=== PATIENT | male | born 1945 | race Caucasian/White ===

== ENCOUNTER 2023-07-13 14:27 | Outpatient (REF) | payer OTHER, SELFPAY ==
--- NOTE | ~2023-07-13 | FL_ITS ---
EXAMINATION: XR BARIUM SWALLOW CLINICAL INFORMATION: Oral and pharyngeal dysphagia. COMPARISON: None available. TECHNIQUE: Modified barium swallow with speech pathologist. FINDINGS: Patient swallowed multiple consistencies from thin liquid to barium coated cookie. There is noted to be laryngeal penetration and tracheal aspiration without a cough reflex being elicited with thin contrast. There was transient laryngeal penetration with nectar thick on a single swallow. FLUOROSCOPY TIME: 5.0 minutes DOSE AREA PRODUCT: 17.005 Gy-cm2 (cantrell-centimeter squared) FL/FL barium swallow modified IMPRESSION: Aspiration without cough reflex with thin liquid. Please refer to speech pathology report for details.
--- NOTE | 2023-07-14 16:48 | MHC.SL.IMP ---
Date of Plan of Treatment: 07/13/23 Onset of Symptoms/Illness: 07/13/15 Date Treatment Started: 07/13/23 Admitting Diagnosis: Dysphagia Progressive Supranuclear Palsy (PSP) Primary Speech & Language Diagnosis: R13.12 Oropharyngeal Phase Dysphagia Reason for Today's Visit: 34398 Modified Barium Swallow Study Pre-evaluation Dietary Consistencies: Food is cut up Pre-evaluation Liquid Consistency: Liquids are thickened- consistency UNK Medical History: Modified Barium Swallow Study Fluoroscopic Evaluation of Swallowing Function CPT Code 72893 Evaluation Year: 2022 Reason for Study: Hx dysphagia & Progressive Supranuclear Palsy Referring Physician: Thong Okeefe MD Evaluating Clinician: Gila Jane MA, CCC-POWERHOUSE LABORER Study Number: 1 Patient Name: Yoni Way Status: Outpatient, Wheelchair Age: 78 Gender: Male Medical History Dysphagia Progressive Supranuclear Palsy (PSP) Current (pre-evaluation) Intake/Diet: Route: PO Diet Grade: ?Food is cut up? (liquids thickened) Pre-Study Functional Oral Intake Scale (FOIS): 5- Total oral intake of multiple consistencies requiring special preparation Pain: None reported at time of study SUBJECTIVE: Pt is a 78 year old male referred for a MBSS by Thong Okeefe MD to assess the extent of oropharyngeal dysphagia and to determine safest, least restrictive diet. Pt has history of dysphagia and has demonstrated overt s/s of aspiration with liquids during clinical swallow evaluations when seen by rib stiffener and heel dipper in the past. Pt has been diagnosed with underlying Progressive Supranuclear Palsy (PSP). He was accompanied to this exam by his , Mrs. Mariely Way, who reports she is pt?s primary caregiver and assisted in providing background information. Pt stated that he has difficulty swallowing, with his specifying that he seems to have more difficulty with liquids. Pt reportedly coughs and at times spits out liquids. Pt denied experiencing odynophagia and globus sensation. Per Mrs. Way, pt has had an MBSS in the past. Mr. and Mrs. Way were unable to recall specific details, but Mrs. Way reports pt does have history of known aspiration. Mrs. Way reports she cuts up food into small pieces, uses thickener with drinks at home, and assists in feeding pt. Oral Motor Exam Mouth Occlusion: Normal Oral-Facial Teeth Characteristics: Intact/Normal Oral-Facial Smile (Lips) Description: Normal Tongue Size: Normal Tongue Excursion Description: Normal Tongue Range of Movement Description: Normal Tongue Speed of Movement Description: Reduced Tongue Strength of Movement (against opposing pressure): Reduced Tongue Movement Characteristics: Fasciculations Tongue Movement Miscellaneous Observation: Pt w/ weak volitional cough. Is patient able to manage secretions?: Yes Food and Liquid Trials: Oral Impairment: Lip Closure: Did not test Oral Impairment: Tongue Control During Bolus Hold: 2=Posterior escape of less than half of bolus Oral Impairment: Bolus Preparation/Mastication: 1=Slow prolonged chewing/mashing with complete re-collection Oral Impairment: Bolus Transport/Lingual Motion: 3=Repetitive/disorganized tongue motion Oral Impairment: Oral Residue: 1=Trace residue lining oral structures Oral Impairment:Initiation of Pharyngeal Swallow: 3=Bolus head in pyriforms Pharyngeal Impairment: Soft Palate Elevation: 0=No bolus between soft palate (SP)/pharyngeal wall (PW) Pharyngeal Impairment: Laryngeal Elevation: 1=Partial thyroid cartilage/arytenoids to epiglottic petiole movement Pharyngeal Impairment: Anterior Hyoid Excursion: 1=Partial anterior movement Pharyngeal Impairment: Epiglottic Movement: 1=Partial inversion Pharyngeal Impairment: Laryngeal Vestibular Closure:: 1=Incomplete: narrow column air/contrast in laryngeal vestibule Pharyngeal Impairment: Pharyngeal Stripping Wave: 1=Present: diminished Pharyngeal Impairment: Pharyngeal Contraction: Did not test Pharyngeal Impairment: Pharyngoesophageal Segment Openin=Complete distension and complete duration: no obstruction of flow Pharyngeal Impairment: Tongue Base (TB) Retraction: 3=Wide column of contrast/air between TB and posterior PW Pharyngeal Impairment: Pharyngeal Residue: 1=Trace residue within or on pharyngeal structures Pharyngeal Impairment: Esophageal Clearance Upright Position: Did not test Impressions and Recommendations Clinical Observations: OBJECTIVE: Time-out: performed at 15:30 Evaluation Start: 15:00; Stop: 15:11 Patient Positioning: Seated 70-90 degrees Viewing Planes: LATERAL ONLY Contrast: MBSImP? Standardized Protocol using commercially prepared, standardized Barium viscosities, including: Varibar? THIN LIQUID (40% w/v, <15 cps) , Varibar? NECTAR (40% w/v, <150-450 cps) , Varibar? THIN HONEY (40% w/v, <800-1800 cps) , 1/2 Shortbread Cookie (1 x1 x.25 ) MBSImP ID: [id number] [facility] Results: Lip closure for intraoral bolus containment could not be assessed due to logistical reasons not related to physiologic impairment. Tongue control during bolus hold resulted in posterior escape of less than half of the bolus. Bolus preparation and mastication resulted in slow, prolonged chewing/mashing but with complete re-collection. Bolus transport/lingual motion was with repetitive/disorganized motion of the tongue. Oral residue was a trace, lining oral structures. Initiation of the pharyngeal swallow occurred when the bolus head was in the pyriform sinuses. Soft palate elevation resulted in no bolus between the soft palate and the pharyngeal wall. Laryngeal elevation was decreased, with partial superior movement of the thyroid cartilage/partial approximation of the arytenoids to the epiglottic petiole. Anterior hyoid excursion demonstrated partial anterior movement. Epiglottic movement resulted in partial inversion. Laryngeal vestibular closure was incomplete, with a narrow column of air/contrast noted within the laryngeal vestibule at the height of the swallow. Pharyngeal stripping wave was present, but diminished. Pharyngeal contraction could not be determined due to logistical reasons not related to physiologic impairment. Pharyngoesophageal segment opening was completely distended for complete duration with no obstruction of bolus flow. Tongue base retraction allowed a wide column of contrast or air between the retracted tongue base and the posterior pharyngeal wall. Pharyngeal residue was a trace within or on pharyngeal structures. Esophageal clearance in the upright position could not be assessed due to logistical reasons not related to physiologic impairment. Oral Impairment Score: 9 (absence of score, component 1) Pharyngeal Impairment Score: 8 (absence of score, component 13) Esophageal Impairment Score: --- (absence of score, component 17) Laryngeal Penetration and Aspiration: Aspiration was observed in today's study. [place]adito-thick, Thin Contrast entered the airway, passed below the vocal folds, and no effort were made to eject. ASSESSMENT: This exam was conducted by a multidisciplinary team, which included a speech pathologist, radiologist, and composite bond technician. Pt was seated upright at 90 degrees for lateral view only. With some hand over hand guidance, pt was able to self-administer bites/sips. Pt trialed the following liquid and solid consistencies: thin liquid barium by cup,straw; nectar thick liquid barium by spoon, cup; honey thick liquid barium by spoon, cup; pureed solid (applesauce mixed with barium paste); ground solid (chicken salad mixed with barium paste); and regular solid (Belen Doone cookie coated in barium paste). There was premature posterior escape, which increased with trials of thinner consistencies (thin liquid and nectar thick liquid). Pt demonstrated significantly slowed and disorganized lingual bolus transport, characterized by slowed and repetitive tongue rocking motion. Mastication was slowed and prolonged, overall with good oral recollection after initial swallow. There was trace lingual residue which cleared with subsequent swallows. Pharyngeal swallow trigger was delayed, initiated as the bolus head reached the pyriforms. There was no nasopharyngeal reflux. Incomplete laryngeal elevation with partial anterior hyoid excursion and partial epiglottic inversion. Incomplete laryngeal vestibular closure. There was ryder tracheal aspiration prior to and during the pharyngeal swallow with trials of thin liquid via cup and straw. There was evidence of trace aspiration with trial of nectar thick liquid by cup sip. Pt produced a brief, spontaneous cough on one instance, otherwise, episodes of aspiration occurred silently without a protective cough reflex. Pt was instructed to produce a strong cough on command. Pt?s cough was notably weak. Throat clearing resulted in reduction of contrast, but did not entirely expel it from the airway. No evidence of penetration or aspiration with trials of honey thick liquid. Pt consumed puree, ground solid, and regular texture solid. No evidence of aspiration or penetration with solid consistencies. There was trace residue in the valleculae, which subsequently cleared. Liquid Intake Recommendation: Honey Thick Liquid Intake Strategies: Small Sips No Straws Double Swallow Dietary Recommendations: Chopped/Advanced (NDD3) Medication Administration: Crushed with Puree Please contact the pharmacy regarding appropriate crushable or liquid drug formulations that are available whenever modified delivery is recommended. Compensatory Strategies Recommended: Sitting Upright (90 deg) Double Swallow No Straw Liquids from Cup Liquids from Spoon Small Bites and Sips Rate of Ingestion Change Oral Check Avoid Specific Foods Supervision during eating and or drinking: Total Assistance (1:1) Recommended Treatments: Compens. Strategy Educat. Recommendation for Speech Therapy: Outpatient Speech Therapy Text Comment: PLAN: Intake Recommendations: Route: PO Diet Grade: CHOPPED/ADVANCED (NDD3) Liquid Consistencies: Honey Post-Study Functional Oral Intake Scale (FOIS): 5- Total oral intake of multiple consistencies requiring special preparation Evidence of aspiration with thin liquid and nectar thick liquid. Trace residue in the oral and pharyngeal cavities cleared with subsequent swallows. Based on the results of this exam, it appears that the safest, least restrictive diet textures are CHOPPED/ADVANCED (NDD3) solids, HONEY THICK liquids, pills CRUSHED in PUREE with STRICT ASPIRATION PRECAUTIONS: -1:1 supervision during meal time, close monitoring, provide assistance as needed throughout meal -Oral care before first meal and after each subsequent meal to reduce the risk of aspirating oral bacteria -Sit upright during PO intake and for at least 30 minutes afterwards -Administer small bites of food -Chew food well -Ensure oral cavity is clear before giving/taking more bites -Dry swallow between bites to promote oral and pharyngeal clearance -Take small sips by cup or by spoon -One controlled sip at a time -AVOID STRAWS Therapy Recommendations: Therapy will be continued- Recommend 4 weekly speech therapy sessions for further education and support RE: results of this exam; signs/risks of aspiration; recommended dietary textures and behavioral strategies. Given pt?s underlying progressive condition (PSP), it is strongly recommended for pt and his caregiver to continue monitoring his dysphagia. If there are any changes or worsening of symptoms, contact PCP at which point a re-evaluation would be indicated. Prognosis for Improvement: The prognosis for the patient to meet nutritional needs by mouth is poor based on degree of impairment, stimulability for treatment, underlying psp. Mcfp Goals: ? The patient and/or family will participate in further education for swallowing goals. Short Term Goals: ? Guidelines - The patient will comply with/recall the following guidelines/strategies 100% of the time with moderate cuing: Honey-thick Liquid, Bolus Volume Change, Rate of Ingestion Change, Throat Clear, Cough Volitional, No Straws. ? Education - The patient, family, caregiver will verbalize/demonstrate understanding of the results of this evaluation, the above recommendations, and the swallowing guidelines. Frequency/Duration: 1x weekly x 4 weeks Date Range for Service Requested: Timeline to reassess: 6 months Clinician - Supplemental, Miscellaneous Communication: It is important to note MBSS objective studies are snapshots in time and Patient function might vary with factors such as time of day or concomitant medical conditions. For this reason, the final treatment plan for this patient should rest with their medical care team. Additional recommendations should be considered with the totality of the Patient in mind. Thank for the opportunity to participate in the care of this patient. If you have any questions about the content of this report, please contact the [facility] at [facility]. Education: Education regarding findings from today's study and plans for therapy were provided to Patient and family/caregiver through Verbal Instruction. Understanding was expressed by the Patient and family/caregiver. Gas Station Supervisor Clinician/Clinical Fellow: No Supervisory Statement: N/A Speech Language Pathologist: Gila Jane M.A., CCC-POWERHOUSE LABORER
== END 2023-07-13 14:28 | disposition home or self-care (01) ==
LOC: HO.XRAY 14:27
DX: R13.10 Dysphagia, unspecified (principal)
CPT/HCPCS: 74230; 92611

== ENCOUNTER → 2023-07-13 14:29 | Outpatient (BNV) | payer OTHER, SELFPAY | PROVIDERS: Visit Provider Radiology Diagnostic Radiology | DX: R13.10 Dysphagia, unspecified (principal) | CPT/HCPCS: 74230 ==